=== PATIENT | male | born 2000 | race Caucasian/White ===

== ENCOUNTER 2021-05-04 21:32 | Emergency (ER) | payer MEDICAID ==
--- NOTE | 2021-05-04 22:24 | EDM.PDOC ---
ED HPI GENERAL MEDICAL PROBLEM - General Chief Complaint: Chest Pain Stated Complaint: SPIKING IRREGULAR HEART RATE AND CHEST PAIN Time Seen by Provider: 05/04/21 22:16 Source of Information: Reports: Patient, RN Notes Reviewed History Limitations: Reports: No Limitations - History of Present Illness INITIAL COMMENTS - FREE TEXT/NARRATIVE: 20-year-old gentleman presents emergency department day complaint of chest pain, he states that chest pain has been ongoing for the last 2 months since he had Covid, however today it got significantly worse pain was very sharp and intense in nature he does feel nauseated does feel short of breath he is diaphoretic with the pain. He has been evaluated by his primary care has had a couple of x- rays and evaluation done in the past no etiology to his chest pain thus far. - Related Data Allergies Allergy/AdvReac Type Severity Reaction Status Date / Time No Known Allergies Allergy Verified 05/04/21 22:14 Home Meds: Home Meds Albuterol [Ventolin HFA] 1 puff INH ASDIRECTED 05/04/21 [History] Past Medical History Endocrine/Metabolic History: Reports: Obesity/BMI 30+ Social & Family History - Tobacco Use Tobacco Use Status *Q: Never Tobacco User - Caffeine Use Caffeine Use: Reports: None - Recreational Drug Use Recreational Drug Use: No ED ROS GENERAL - Review of Systems Review Of Systems: See Below Constitutional: Denies: Fever Respiratory: Reports: No Symptoms Cardiovascular: Reports: Chest Pain GI/Abdominal: Reports: No Symptoms ED EXAM, GENERAL - Physical Exam Exam: See Below Exam Limited By: No Limitations General Appearance: Alert, WD/WN, No Apparent Distress Respiratory/Chest: No Respiratory Distress, Lungs Clear, Normal Breath Sounds, No Accessory Muscle Use, Chest Non-Tender Cardiovascular: Regular Rate, Rhythm, No Murmur GI/Abdominal: Soft, Non-Tender Course - Vital Signs Last Recorded V/S: Last Vital Signs Temp 97.2 F 05/04/21 22:13 Pulse 73 05/04/21 23:13 Resp 18 05/04/21 23:13 BP 131/60 05/04/21 23:13 Pulse Ox 97 05/04/21 23:13 - Orders/Labs/Meds Orders: Active Orders 24 hr Category Date Time Status Cardiac Monitoring [RC] .As Directed Care 05/04/21 22:22 Active Chest 2V [CR] Stat Exams 05/04/21 22:23 Taken EKG 12 Lead [EK] Stat Ther 05/04/21 22:22 Ordered Labs: Laboratory Tests 05/04/21 05/04/21 05/04/21 Range/Units 22:30 22:30 22:30 WBC 7.1 (4.5-11.0) K/uL RBC 5.12 (4.30-5.90) M/uL Hgb 14.3 (12.0-15.0) g/dL Hct 42.1 (40.0-54.0) % MCV 82 (80-98) fL MCH 28 (27-31) pg MCHC 34 (32-36) % Plt Count 232 (150-400) K/uL Neut % (Auto) 37.1 (36-66) % Lymph % (Auto) 49.1 H (24-44) % [place] % (Auto) 10.8 H (2-6) % Eos % (Auto) 2.4 (2-4) % Baso % (Auto) 0.6 (0-1) % D-Dimer, Quantitative 188.37 (0.0-500.0) ng/mL Sodium 142 (140-148) mmol/L Potassium 4.0 (3.6-5.2) mmol/L Chloride 107 (100-108) mmol/L Carbon Dioxide 22 (21-32) mmol/L Anion Gap 13.3 (5.0-14.0) mmol/L BUN 20 H (7-18) mg/dL Creatinine 0.9 (0.8-1.3) mg/dL Est Cr Clr Drug Dosing 153.87 mL/min Estimated GFR (MDRD) > 60 (>60) Glucose 89 (74-106) mg/dL Lactic Acid (0.4-2.0) mmol/L Calcium 9.3 (8.5-10.1) mg/dL Total Bilirubin 0.4 (0.2-1.0) mg/dL AST 21 (15-37) U/L ALT 39 (12-78) U/L Alkaline Phosphatase 93 (46-116) U/L Troponin I < 0.017 (0.000-0.056) ng/mL Total Protein 7.5 (6.4-8.2) g/dL Albumin 4.0 (3.4-5.0) g/dL Globulin 3.5 (2.3-3.5) g/dL Albumin/Globulin Ratio 1.1 L (1.2-2.2) 05/04/21 Range/Units 22:30 WBC (4.5-11.0) K/uL RBC (4.30-5.90) M/uL Hgb (12.0-15.0) g/dL Hct (40.0-54.0) % MCV (80-98) fL MCH (27-31) pg MCHC (32-36) % Plt Count (150-400) K/uL Neut % (Auto) (36-66) % Lymph % (Auto) (24-44) % [place] % (Auto) (2-6) % Eos % (Auto) (2-4) % Baso % (Auto) (0-1) % D-Dimer, Quantitative (0.0-500.0) ng/mL Sodium (140-148) mmol/L Potassium (3.6-5.2) mmol/L Chloride (100-108) mmol/L Carbon Dioxide (21-32) mmol/L Anion Gap (5.0-14.0) mmol/L BUN (7-18) mg/dL Creatinine (0.8-1.3) mg/dL Est Cr Clr Drug Dosing mL/min Estimated GFR (MDRD) (>60) Glucose (74-106) mg/dL Lactic Acid 1.1 (0.4-2.0) mmol/L Calcium (8.5-10.1) mg/dL Total Bilirubin (0.2-1.0) mg/dL AST (15-37) U/L ALT (12-78) U/L Alkaline Phosphatase (46-116) U/L Troponin I (0.000-0.056) ng/mL Total Protein (6.4-8.2) g/dL Albumin (3.4-5.0) g/dL Globulin (2.3-3.5) g/dL Albumin/Globulin Ratio (1.2-2.2) Departure - Departure Time of Disposition: 23:44 Disposition: Home, Self-Care 01 Condition: Fair Clinical Impression: Atypical chest pain Instructions: Nonspecific Chest Pain, Adult Referrals: PCP,None [Primary Care Provider] - Forms: ED Department Discharge Additional Instructions: Try the nebulizer as needed for shortness of breath symptoms, please keep your follow-up appointment with your primary care for further evaluation Sepsis Event Note (ED) - Evaluation Sepsis Screening Result: No Definite Risk - Focused Exam Vital Signs: Vital Signs Temp Pulse Resp BP Pulse Ox 05/04/21 23:13 73 18 131/60 97 05/04/21 22:13 97.2 F 76 16 134/68 98 05/04/21 21:53 97.2 F 76 16 134/68 98 - My Orders Last 24 Hours: My Active Orders 05/04/21 22:22 Cardiac Monitoring [RC] .As Directed EKG 12 Lead [EK] Stat 05/04/21 22:23 Chest 2V [CR] Stat - Assessment/Plan Last 24 Hours: My Active Orders 05/04/21 22:22 Cardiac Monitoring [RC] .As Directed EKG 12 Lead [EK] Stat 05/04/21 22:23 Chest 2V [CR] Stat Plan: Assessment Acuity = acute Site and laterality = chest pain atypical Etiology = unknown Manifestations = dyspnea Location of injury = Home Lab values = CBC, CMP, troponin, D-dimer all within normal limits EKG demonstrates sinus rhythm there is no ST elevation or depression chest x-ray I did review films myself I cannot appreciate any acute process, the official read from radiology is pending Plan He does have a history of Covid it seems like most of the symptoms started after the Covid he would like to try a nebulizer at home prescription written for albuterol he is going to establish with a primary care next week This note was dictated using [employer] voice recognition software please call with any questions on syntax or grammar.
--- NOTE | 2021-05-07 08:40 | CR ---
CHEST: 2 view CLINICAL HISTORY:Chest pain COMPARISON:None FINDINGS: The heart size, pulmonary vascularity and hilar structures are normal. No infiltrate effusion or pneumothorax is seen. IMPRESSION: No acute cardiopulmonary process.
== END 2021-05-05 00:09 | disposition home or self-care (01) ==
LOC: JP.ED 21:32
DX: R07.89 Other chest pain (principal); E66.9 Obesity, unspecified; Z68.33 Body mass index [BMI] 33.0-33.9, adult
CPT/HCPCS: 36415; 71046; 71046-26; 80053; 83605; 84484; 85025; 85379; 93005; 99285-25